=== PATIENT | female | born 1960 | race Caucasian/White ===

== ENCOUNTER 2021-09-03 11:12 | Emergency (ER) | payer SELFPAY ==
[2021-09-03 11:21] VITALS: BP 137/86; PULSE 73; TEMP 98.7; BMI 24.7
== END 2021-09-03 12:38 | disposition home or self-care (01) ==
LOC: JER 11:12
DX: J06.9 Acute upper respiratory infection, unspecified (principal)
CPT/HCPCS: 99282-25